=== PATIENT | female | born 1975 | race Caucasian/White ===

== ENCOUNTER 2018-07-05 12:47 | Emergency (ER) | payer SELFPAY ==
[2018-07-05] MEDS ORDERED: Sodium Chloride 0.9% 500 ML IV STA (13:48)
--- NOTE | 2018-07-05 13:52 | ED PDOC ---
Syncope/Near Syncope/Dizziness Chief Complaint (Provider): "I've been feeling dizzy for a week." History Per: Patient History/Exam Limitations: no limitations Onset/Duration Of Symptoms: Days, Intermittent Episodes Current Symptoms Are (Timing): Gone Now Activity At Onset Of Symptoms: Standing Additional Complaint(s): 42 y/o female w/ pmhx significant for HTN presents to the ED w/ c/o intermittent dizziness that began one week ago, which worsens w/ movement and is associated w/ nausea. She had a similar episode 3 months ago. She describes the dizziness as "lightheadedness, not room spinning." She denies chest pain, SOB, palpitations, numbness, tingling, loss of consciousness, headache, head trauma, vomiting, diaphoresis, double vision, and tinnitus. She denies etoh/ cigarette/recreational drug use. She is [place] the [place] from [facility], and came here on 06/21/2018. LMP 06/17/2018. She states that she is adherent to anti-HTN rx. - Symptoms Of CVA Recent Head Trauma: No - Risk Factors TAD Risk Factors: Pos: Hypertension <Liv Schroeder - Last Filed: 07/05/18 14:24> <Manolo Soni - Last Filed: 07/05/18 16:42> Time Seen by Provider: 07/05/18 12:55 Chief Complaint (Nursing): Dizziness/Lightheaded Supervising Attending Note - Supervising Attending Note The Documented history was done by the: Physician Medical Diagnostic Radiographer The documented physical exam was done by the: Physician Medical Diagnostic Radiographer The documented procedures were done by the: Physician Medical Diagnostic Radiographer - Attestation: I have personally seen and examined this patient.: Yes I have fully participated in the care of the patient.: Yes I have reviewed all pertinent clinical information: Yes - Notes: Notes:: Dizziness on moving around. No symptoms currently. <Manolo Soni - Last Filed: 07/05/18 16:42> Past Medical History Vital Signs: Last Vital Signs Temp 99.3 F 07/05/18 13:08 Pulse 85 07/05/18 13:08 Resp 16 07/05/18 13:08 BP 177/106 H 07/05/18 13:08 Pulse Ox 99 07/05/18 13:08 - Surgical History Surgical History: - Family History Family History: States: Hypertension - Living Arrangements Living Arrangements: With Family - Social History Current smoker - smoking cessation education provided: No Ex-Smoker (has not smoked in the last 12 months): No Alcohol: Occasional Drugs: Denies <Liv Schroeder - Last Filed: 07/05/18 14:24> Reviewed: Nursing Documentation, Vital Signs Vital Signs: Last Vital Signs Temp 99.4 F 07/05/18 16:34 Pulse 74 07/05/18 16:34 Resp 19 07/05/18 16:34 BP 133/89 07/05/18 16:34 Pulse Ox 98 07/05/18 16:34 <Manolo Soni - Last Filed: 07/05/18 16:42> - Home Medications Home Medications: Ambulatory Orders Medication Instructions Recorded Meclizine [Meclizine*] 25 mg PO Q12 PRN #10 tab 07/05/18 - Allergies Allergies/Adverse Reactions: Allergies Allergy/AdvReac Type Severity Reaction Status Date / Time No Known Allergies Allergy Verified 07/05/18 13:08 Review of Systems Constitutional: Negative for: Fever, Chills, Weakness Eyes: Negative for: Vision Change ENT: Negative for: Ear Pain Cardiovascular: Positive for: Light Headedness. Negative for: Chest Pain, Edema Respiratory: Negative for: Shortness of Breath, SOB with Exertion Gastrointestinal: Positive for: Nausea. Negative for: Vomiting, Abdominal Pain , Diarrhea, Constipation Genitourinary Female: Negative for: Dysuria, Frequency, Pelvic Pain Musculoskeletal: Negative for: Neck Pain, Back Pain Skin: Negative for: Bruising Neurological: Positive for: Dizziness. Negative for: Weakness, Numbness, Incoordination, Change in Speech, Confusion, Seizures, Altered Mental Status, Headache Psych: Negative for: Anxiety, Depression <Liv Schroeder - Last Filed: 07/05/18 14:24> Physical Exam - Physical Exam Appears: Positive for: No Acute Distress Head Exam: Positive for: ATRAUMATIC, NORMAL INSPECTION Skin: Positive for: Normal Color, Warm, Dry. Negative for: Diaphoresis, Pallor Eye Exam: Positive for: Normal appearance, PERRL. Negative for: Nystagmus, Conjunctival injection ENT: Positive for: Normal ENT Inspection Neck: Positive for: Normal. Negative for: Pain On Movement Of Neck Cardiovascular/Chest: Positive for: Regular Rate, Rhythm, Chest Non Tender. Negative for: Bradycardia, Tachycardia Respiratory: Positive for: Normal Breath Sounds Gastrointestinal/Abdominal: Positive for: Bowel Sounds, Soft. Negative for: Tenderness Extremity: Negative for: Tenderness, Pedal Edema, Calf Tenderness Neurologic/Psych: Positive for: Alert, gift consultant II-XII, Oriented. Negative for: Aphasia, Facial Droop <Liv Schroeder - Last Filed: 07/05/18 14:24> - Physical Exam Cardiovascular/Chest: Positive for: Regular Rate, Rhythm Respiratory: Positive for: Normal Breath Sounds Neurologic/Psych: Positive for: Alert, gift consultant II-XII, Oriented. Negative for: Motor/Sensory Deficits <Manolo Soni - Last Filed: 07/05/18 16:42> - ECG O2 Sat by Pulse Oximetry: 99 - Progress ED Course And Treament: Assessment 42 y/o female w/ hx of HTN c/o of lightheadedness/dizziness x 1 week. Plan: CBC CMP EKG -normal sinus rhythm, normal EKG Troponin 1 Urine HCG- negative CT head w/o contrast Meclizine 25mg PO IVF NaCl- 500mL @ 100mL/hr Case discussed w/ attending physician <Liv Schroeder - Last Filed: 07/05/18 14:24> - Laboratory Results Result Diagrams: 07/05/18 14:00 07/05/18 14:00 - Progress ED Course And Treament: 1630: Stable. AAOx3. Pain free. Tolerated PO. FU with pcp. Ambulated with no issues. <Manolo Soni - Last Filed: 07/05/18 16:42> Disposition <Liv Schroeder - Last Filed: 07/05/18 14:24> - Disposition Disposition Time: 16:00 <Manolo Soni - Last Filed: 07/05/18 16:42> - Clinical Impression Clinical Impression: Dizziness - Disposition Referrals: [facility] [Outside] - 07/06/18 Condition: STABLE Additional Instructions: Return if not better in 3 days. Prescriptions: Meclizine [Meclizine*] 25 mg PO Q12 PRN #10 tab PRN Reason: Dizziness Instructions: Vertigo (a Type of Dizziness) Forms: [employer] (Fijian)
[2018-07-05 14:25] LABS: ALB/GLOB RATIO 1.3 (1.0-2.1); ALBUMIN 4.4 g/dL (3.5-5.0); ALT/SGPT 17 U/L (9-52); AST/SGOT 26 U/L (14-36); BLOOD UREA NITROGEN 15 mg/dl (7-17); CALCIUM 9.5 mg/dL (8.4-10.2); GFR NON-AFRICAN AMERICAN > 60
[2018-07-05 14:33] LABS: BASO # 0.1 K/uL (0.0-0.2); BASO % 1.3 % (0.0-2.0); EOS # 0.5 K/uL (0.0-0.7); EOS % 7.9 % (0.0-4.0); HEMOGLOBIN 13.3 g/dL (12.0-16.0); LYMPH # 1.9 K/uL (1.0-4.3); LYMPH % 32.3 % (20.0-40.0); MEAN CORPUSCULAR HEMOGLOBIN 29.9 pg (27.0-31.0); MEAN CORPUSCULAR HGB CONC 34.3 g/dL (33.0-37.0); MEAN PLATELET VOLUME 9.5 fl (7.2-11.7); MONO # 0.6 K/uL (0.0-0.8); MONO % 10.7 % (0.0-10.0); NEUT # 2.8 K/uL (1.8-7.0); NEUT % 47.8 % (50.0-75.0); NRBC % 0.1 % (0.0-0.0); RBC 4.45 Mil/uL (3.80-5.20); WHITE BLOOD COUNT 5.8 K/uL (4.8-10.8)
--- NOTE | 2018-07-05 15:39 | CT ---
Date of service: 07/05/2018 PROCEDURE: CT HEAD WITHOUT CONTRAST. HISTORY: dizzy COMPARISON: None available. TECHNIQUE: Axial computed tomography images were obtained through the head/brain without intravenous contrast. Radiation dose: Total exam DLP = 877.35 mGy-cm. This CT exam was performed using one or more of the following dose reduction techniques: Automated exposure control, adjustment of the mA and/or kV according to patient size, and/or use of iterative reconstruction technique. FINDINGS: HEMORRHAGE: No intracranial hemorrhage. BRAIN: No mass effect or edema. No atrophy or chronic microvascular ischemic changes. VENTRICLES: Unremarkable. No hydrocephalus. CALVARIUM: Unremarkable. PARANASAL SINUSES: Unremarkable as visualized. No significant inflammatory changes. MASTOID AIR CELLS: Unremarkable as visualized. No inflammatory changes. OTHER FINDINGS: None. IMPRESSION: Normal CT of the Head. No intracranial mass, hemorrhage or evidence of acute infarct.
[2018-07-05 16:36] VITALS: BP 133/89; PULSE 74; RESP 19; TEMP 99.4; O2SAT 98
--- NOTE | 2018-07-05 18:31 | CARD ---
APPROVED REPORT Date of service: 07/05/2018 EKG Measurement Heart [id number] <Conclusion> Normal sinus rhythm Normal ECG
== END 2018-07-05 16:55 | disposition home or self-care (01) ==
LOC: H.ER 12:47
DX: R42 Dizziness and giddiness (principal); I10 Essential (primary) hypertension
CPT/HCPCS: 70450; 80053; 81025; 84484; 85025; 93005; 96360; 96361; 99285; J7040